=== PATIENT | female | born 1955 | race Caucasian/White ===

== ENCOUNTER 2018-01-29 11:31 | Emergency (ER) | payer OTHER ==
[2018-01-29 12:03] VITALS: RESP 18; TEMP 97.9; O2SAT 97
--- NOTE | 2018-01-29 12:27 | ED PDOC ---
Arrival/HPI - General Chief Complaint: Lower Extremity Problem/Injury Time Seen by Provider: 01/29/18 12:15 Historian: Patient, Family - History of Present Illness Narrative History of Present Illness (Text): 01/29/18 12:27 Patient is a 63 year old female whose past medical history includes hyperlipidemia, who presents to the Emergency department with her son-in-law complaining of chronic pain in her knees. Patient is primarily Mohawk speaking and had her son-in-law translate for her. She reports that she has had ongoing bilateral knee and lower extremity pain with edema for the past 5 years. [place] and would like to be evaluated. Patient denies any acute change in her symptoms. Denies any calf pain, denies fever, denies chest pain or shortness of breath, denies abdominal pain, denies lightheadedness or dizziness. Denies trauma. Time/Duration: Other (years) Symptom Onset: Gradual Symptom Course: Unchanged Context: Home Past Medical History - Provider Review Nursing Documentation Reviewed: Yes - Psychiatric Hx Substance Use: No - Surgical History Other/Comment: "stone"removal Family/Social History - Physician Review Nursing Documentation Reviewed: Yes Family/Social History: No Known Family HX Smoking Status: Never Smoked Hx Alcohol Use: No Hx Substance Use: No Allergies/Home Meds Allergies/Adverse Reactions: Allergies No Known Allergies Allergy (Verified 01/29/18 12:03) Home Medications: Home Meds Medication Instructions Recorded Confirmed Unobtainable 01/29/18 01/29/18 Review of Systems - Review of Systems Constitutional: absent: Fatigue, Fevers Respiratory: absent: SOB Cardiovascular: Edema. absent: Chest Pain, Calf Pain, JUAREZ Gastrointestinal: absent: Abdominal Pain, Diarrhea, Nausea, Vomiting, Appetite Changes Genitourinary Female: Dysuria. absent: Frequency, Hematuria, Urine Output Changes Musculoskeletal: Arthralgias. absent: Back Pain, Neck Pain Skin: absent: Rash Neurological: absent: Headache, Dizziness, Focal Weakness Endocrine: absent: Polyuria Hemo/Lymphatic: absent: Easy Bleeding Physical Exam - Physical Exam Narrative Physical Exam (Text): 01/29/18 12:27 Head: Atraumatic. Normocephalic. Eyes: PERRL. EOMI. Conjunctivae are not pale. ENT: Mucous membranes are moist and intact. Oropharynx is clear and symmetric. Neck: Supple. Full ROM. No JVD. No lymphadenopathy. No meningeal signs. Cardiovascular: Regular rate. Regular rhythm. No murmurs, rubs, or gallops. Strong distal pulses. Pulmonary/Chest: No evidence of respiratory distress. Clear to auscultation bilaterally. No wheezing, rales or rhonchi. Abdominal: Soft and non-distended. There is no tenderness. No rebound, guarding, or rigidity. No organomegaly. Good bowel sounds. No suprapubic pain. Back: No CVA tenderness. No midline tenderness. Extremities: Bilateral lower extremity edema, nonpitting. NO erythema or calf pain. Full range of motion of hips and knees. No warmth or erythema or scaling. Skin: Skin is warm and dry. No petechiae. No purpura. No erythema. Neurological: Alert, awake, and oriented. Motor and sensory exam intact. Psychiatric: Good eye contact. Normal interaction, affect, and behavior. Vital Signs Reviewed: Yes Vital Signs Temp Pulse Resp BP Pulse Ox 01/29/18 12:01 97.9 F 70 18 146/66 97 Temperature: Afebrile Blood Pressure: Normal Pulse: Regular Respiratory Rate: Normal Appearance: Positive for: Well-Appearing Mental Status: Positive for: Alert and Oriented X 3 Medical Decision Making ED Course and Treatment: 01/29/18 12:27 Impression: 63 year old female complaining of chronic bilateral knee to lower extremities pain and edema. Plan: -- Urinalysis -- Lower Extremity Duplex -- Reassess and disposition Prior Visits: Notes and results from previous visits were reviewed. Progress Notes: Patient by history has had symptoms for 5 years with no acute trauma or change. Currently no associated chest pain or shortness of breath. No associated fevers or chills. On exam, mild nonpitting symmetric edema noted with no warmth or lesions or cellulitis. She is neurovascularly intact with no large abdominal masses noted. Treatment plan reviewed with patient and son in law who translates with patient permission. Ultrasound pending at this time. Patient has strong distal pulses with no respiratory symptoms. Preliminary ultrasound report negative for DVT. On exam, no chest pain or sob, no rales or crackles. No shortness of breath. Urinalysis reviewed with patient and family. As she states that she has had no ACUTE symptoms and symptoms for several years, confirmed multiple times with repeat history and translation, will discharge patient with follow-up with PMD, clinic. Follow-up instructions provided to son in law with patient. - RAD Interpretation Radiology Orders: 01/29/18 12:26 DUPLEX LOWER EXTRM VEIN BILAT [US] Stat - Scribe Statement The provider has reviewed the documentation as recorded by the Scribe Riley Serrano Provider Scribe Attestation: All medical record entries made by the Scribe were at my direction and personally dictated by me. I have reviewed the chart and agree that the record accurately reflects my personal performance of the history, physical exam, medical decision making, and the department course for this patient. I have also personally directed, reviewed, and agree with the discharge instructions and disposition. Disposition/Present on Arrival - Present on Arrival Any Indicators Present on Arrival: No History of DVT/PE: No History of Uncontrolled Diabetes: No Urinary Catheter: No History of Decub. Ulcer: No History Surgical Site Infection Following: None - Disposition Have Diagnosis and Disposition been Completed?: Yes Diagnosis: Edema leg Disposition: HOME/ ROUTINE Disposition Time: 13:33 Patient Plan: Discharge Condition: GOOD Discharge Instructions (ExitCare): Dependent Edema (DC) Additional Instructions: For any fevers, chest pain, shortness of breath, redness, pain, discoloration, persistent or worsening of any symptoms, get rechecked. Follow-up with clinic or your primary physician in 1-2 days. Take ibuprofen as needed for knee or joint pain but get rechecked if symptoms worsen or persist. VANESSA JOHNSON SAID, thank you for letting us take care of you today. Your provider was Darin Francois MD and you were treated for KNEE PAIN. The emergency medical care you received today was directed at your acute symptoms. If you were prescribed any medication, please fill it and take as directed. It may take several days for your symptoms to resolve. Return to the Emergency Department if your symptoms worsen, do not improve, or if you have any other problems. Please contact your doctor or call one of the physicians/clinics you have been referred to that are listed on the Patient Visit Information form that is included in your discharge packet. Bring any paperwork you were given at discharge with you along with any medications you are taking to your follow up visit. Our treatment cannot replace ongoing medical care by a primary care provider outside of the emergency department. Thank you for allowing the [facility] team to be part of your care today. If you had an X-Ray or CT scan: A Radiologist will review the ED reading if any change in treatment is needed we will contact you. If you had a blood, urine, or wound culture: It will take several days for the results, if any change in treatment is needed we will contact you. Referrals: Jonna Nunez MD [Medical Doctor] - Follow up with primary [facility] [place] [Outside] - Follow up with primary [facility] [Outside] - Follow up with primary Forms: [employer] (Portuguese)
[2018-01-29 13:00] LABS: PH,URINE 6.5 (4.7-8.0); URINE BILIRUBIN NEGATIVE (NEGATIVE); URINE BLOOD NEGATIVE (NEGATIVE); URINE GLUCOSE (UA) NEGATIVE (NEGATIVE); URINE LEUKOCYTE ESTERASE SMALL Leu/uL (NEGATIVE); URINE PROTEIN NEGATIVE mg/dL (<30 mg/dL); URINE UROBILINOGEN 0.2 E.U./dL (<1 E.U./dL)
[2018-01-29 13:02] LABS: URINE APPEARANCE CLEAR (CLEAR); URINE COLOR YELLOW (YELLOW)
[2018-01-29 13:08] LABS: URINE BACTERIA FEW (NEG); URINE RBC 0 - 2 /hpf (0-2)
[2018-01-29 13:38] VITALS: BP 137/74; PULSE 62
--- NOTE | 2018-01-29 14:24 | US ---
HISTORY: Leg pain and swelling. Evaluate for DVT PHYSICIAN(S): Mandeep Malloy MD. TECHNIQUE: Duplex sonography and color-flow Doppler with graded compression were used to evaluate the deep venous systems of both lower extremities. FINDINGS: The visualized deep venous systems of both lower extremities are sonographically normal and compressible. Normal wave forms and augmentation are seen. There is no sonographic evidence for deep venous thrombosis in the visualized segments of both lower extremities. IMPRESSION: No sonographic evidence for deep venous thrombosis in the visualized segments of both lower extremities.
== END 2018-01-29 13:52 | disposition home or self-care (01) ==
LOC: ED 11:31
DX: M79.89 Other specified soft tissue disorders (principal); E78.5 Hyperlipidemia, unspecified